=== PATIENT | female | born 1995 | race Caucasian/White ===

== ENCOUNTER 2021-03-21 17:47 | Emergency (ER) | payer OTHER ==
[~2021-03-21] VITALS: Ht 172.7 cm; Wt 127.0 kg
[2021-03-21] MEDS ORDERED: NOVOLOG100 UNIT/M SUBQ (18:12)
[2021-03-21] MEDS ORDERED: LANTUS SUBQ (18:12)
[2021-03-21 20:29] LABS: URINE BILIRUBIN NEGATIVE (Negative); URINE BLOOD TRACE (Negative); URINE CLARITY CLEAR; URINE COLOR YELLOW; URINE GLUCOSE-RANDOM TRACE (Negative); URINE KETONES NEGATIVE (Negative); URINE LEUKOCYTES-REFLEX NEGATIVE (Negative); URINE NITRITE-REFLEX NEGATIVE (Negative); URINE PROTEIN 1+ (Negative); URINE SPECIFIC GRAVITY 1.015 (1.005-1.030); URINE UROBILINOGEN 0.2 E.U./dl (0.2-1.0)
[2021-03-21 21:32] LABS: ABSOLUTE BASOPHILS 0.1 thou/uL (0.0-0.2); ABSOLUTE LYMPHOCYTES 1.5 thou/uL (0.8-5.3); ABSOLUTE MONOCYTES 0.7 thou/uL (0.0-1.2); ABSOLUTE NEUTROPHILS 6.4 thou/uL (1.6-8.1); BASOPHILS 0.7 %; EOSINOPHILS 0.3 %; HEMATOCRIT 37.7 % (37.0-47.0); HEMOGLOBIN 13.2 gm/dL (12.0-15.0); LYMPHOCYTES 16.6 %; MCH 29.7 pg (26.0-34.0); MCV 84.8 fL (80.0-100.0); MONOCYTES 8.4 %; MPV 7.7 fl. (7.2-11.1); NUCLEATED RBCS 0 /100WBC; PLATELET COUNT* 339 thou/uL (150-400); RBC 4.45 mil/uL (4.20-5.00); RDW-CV 13.3 % (10.5-14.5); WBC 8.7 thou/uL (4.0-11.0)
[2021-03-21 21:59] LABS: ALBUMIN 3.6 g/dL (3.4-5.0); CALCIUM 8.9 mg/dL (8.5-10.1); CREATININE 0.6 mg/dL (0.6-1.3)
[2021-03-21 22:02] LABS: POTASSIUM 3.1 mmol/L (3.5-5.1)
[2021-03-21 22:12] LABS: TOTAL BILIRUBIN 0.3 mg/dL (<0.1-1.0)
[2021-03-21 22:13] LABS: TOTAL PROTEIN 7.8 g/dL (6.4-8.2)
[2021-03-21] MEDS ORDERED: ACETAMINOPHEN-1 EAC2 PO (22:52)
[2021-03-21] MEDS ORDERED: ZOFRAN ODT4 MG PO (22:52)
[2021-03-21] MEDS ORDERED: CEPHALEXIN500 MG PO (22:52)
[2021-03-21 23:50] VITALS: BP 142/85
== END 2021-03-21 23:50 | disposition home or self-care (01) ==
LOC: M.ERS 17:47
PROVIDERS: Nurse Practitioner Family; Personal Emergency Response Attendant
DX: R10.12 Left upper quadrant pain (principal); R10.13 Epigastric pain; R11.2 Nausea with vomiting, unspecified; E10.9 Type 1 diabetes mellitus without complications